=== PATIENT | male | born 1965 | race Caucasian/White ===

== ENCOUNTER → 2017-01-07 | Outpatient (CLI) | payer MEDICAID ==
--- NOTE | 2017-01-07 18:35 | DX ---
1. Cervical Spine, Two Views History: Chronic pain, arthritis Comparison: None available. Findings: Alignment is anatomic but straight.. There is severe degenerative disk space narrowing betw een C3 and C7 with posterior osteophyte formation greatest at C3-C4.. There is no prevertebral soft tissue swelling. No fracture deformity is identified. Overall mineralization is normal. Impression: Multilevel spondylosis. If there is concern for instability, consider lateral cervical fl exion and extension views. 2. Lumbar Spine, 2 views History: Pain, history of back injury, Z 87.828 Comparison: None Findings: There are 5 lumbarized vertebral bodies. There is a 20 % wedge compression deformity of L1. Some sclerosis in the upper portion of L1 suggests that healing is occurring. The posterior interlam inar line appears intact. There is no transpedicular widening. There is a mild superior endplate comp ression of T11 that is of unknown age. There is degenerative spurring involving the anterior disk spa ce at T11-T12. No other lumbar compression abnormalities are identified. Lumbar disk spaces maintain normal height. Overall mineralization is normal. Impression: 1. L1 compression of uncertain age, but with evidence of healing. 2. Mild T11 compression of unknown age. If there are any old outside x-rays, we would be happy to review them to assess for interval change.
== END ==
LOC: FIMAGING 10:56
DX: G89.29 Other chronic pain (principal); S32.010D Wedge compression fracture of first lumbar vertebra, subsequent encounter for fracture with routine healing; M43.02 Spondylolysis, cervical region; Z87.828 Personal history of other (healed) physical injury and trauma

== ENCOUNTER 2017-10-11 02:33 | Emergency (ER) | payer MEDICAID ==
[2017-10-11 02:43] VITALS: RESP 16
--- NOTE | 2017-10-11 02:57 | EDPHY ---
H & P Stated Complaint: n/v Time Seen by Provider: 10/11/17 02:51 HPI/ROS: Chief Complaint: Nausea, vomiting, diarrhea HPI: 52-year-old male presenting with 2 days of nausea vomiting diarrhea. Patient is concerned because he was states that he was injecting meth is concerned he may have injected something into himself. 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 He has not had any fevers or chills. No chest pain or shortness of breath. No abdominal pain. He states he has been vomiting multiple times having watery diarrhea. No blood in his vomit. No dark tarry stools or blood in his diarrhea. ROS: 10 point Review of Systems is negative except as noted in the HPI. PMH: Hep C Social History: Positive smoking, occasional alcohol, occasional meth Family History: non-contributory Physical Exam: Gen: Awake, Alert, No Distress HEENT: Nose: no rhinorrhea Eyes: PERRLA, EOMI Mouth: Moist mucosa Neck: Supple, no JVD Chest: nontender, lungs clear to auscultation Heart: S1, S2 normal, no murmur Abd: Soft, non-tender, no guarding Back: no CVA tenderness, no midline tenderness Ext: no edema, non-tender Skin: no rash Neuro: CN II-XII intact, Sensation grossly intact, Strength 5/5 in bilateral upper and lower extremities - Personal History Current Tetanus/Diphtheria Vaccine: No Current Tetanus Diphtheria and Acellular Pertussis (TDAP): No - Medical/Surgical History Hx Asthma: No Hx Chronic Respiratory Disease: No Hx Diabetes: No Hx Cardiac Disease: No Hx Renal Disease: No Hx Cirrhosis: No Hx Alcoholism: No Hx HIV/AIDS: No Hx Splenectomy or Spleen Trauma: No Other PMH: hep C, snial fx, drug abuse - Social History Smoking Status: Heavy smoker Constitutional: Initial Vital Signs Temperature (C) 36.6 C 10/11/17 02:41 Heart Rate 84 10/11/17 02:41 Respiratory Rate 16 10/11/17 02:41 Blood Pressure 108/71 10/11/17 02:41 O2 Sat (%) 94 10/11/17 02:41 O2 Delivery Mode Room Air Allergies/Adverse Reactions: bacitracin [From Neosporin ([id number])] Allergy (Verified 10/11/17 02:40) neomycin [From Neosporin ([id number])] Allergy (Verified 10/11/17 02:40) polymyxin B [From Neosporin ([id number])] Allergy (Verified 10/11/17 02:40) Home Medications: Medication Instructions Recorded NK [No Known Home Meds] 10/11/17 Medical Decision Making ED Course/Re-evaluation: 52-year-old male presenting with concerns of a possible blood borne infection after injecting methamphetamine. His primary symptoms are nausea vomiting and diarrhea. He is afebrile. Has no murmur. No chest pain or shortness of breath. He has no symptoms suggestive of acute bacteremia or endocarditis. He is improved after Zofran and IV fluids. He is tolerating p. o.. He does have a leukocytosis however this could certainly be attributed to his nausea and vomiting. Symptoms more consistent with gastroenteritis. Will discharge with follow-up with primary care physician, return for worsening. - Data Points Laboratory Results: Laboratory Results 10/11/17 02:40 10/11/17 02:40 10/11/17 10/11/17 02:40 02:40 WBC 15.70 10^3/uL H 10^3/uL (3.80-9.50) RBC 5.13 10^6/uL 10^6/uL (4.40-6.38) Hgb 16.8 g/dL g/dL (13.7-17.5) Hct 48.4 % % (40.0-51.0) MCV 94.3 fL fL (81.5-99.8) MCH 32.7 pg pg (27.9-34.1) MCHC 34.7 g/dL g/dL (32.4-36.7) RDW 12.9 % % (11.5-15.2) Plt Count 270 10^3/uL 10^3/uL (150-400) MPV 10.6 fL fL (8.7-11.7) Neut % (Auto) 76.1 % H % (39.3-74.2) Lymph % (Auto) 14.0 % L % (15.0-45.0) [place] % (Auto) 7.3 % % (4.5-13.0) Eos % (Auto) 1.7 % % (0.6-7.6) Baso % (Auto) 0.6 % % (0.3-1.7) Nucleat RBC Rel Count 0.0 % % (0.0-0.2) Absolute Neuts (auto) 11.97 10^3/uL H 10^3/uL (1.70-6.50) Absolute Lymphs (auto) 2.20 10^3/uL 10^3/uL (1.00-3.00) Absolute Monos (auto) 1.14 10^3/uL H 10^3/uL (0.30-0.80) Absolute Eos (auto) 0.26 10^3/uL 10^3/uL (0.03-0.40) Absolute Basos (auto) 0.09 10^3/uL 10^3/uL (0.02-0.10) Absolute Nucleated RBC 0.00 10^3/uL 10^3/uL (0-0.01) Immature Gran % 0.3 % % (0.0-1.1) Immature Gran # 0.04 10^3/uL 10^3/uL (0.00-0.10) Sodium 143 mEq/L mEq/L (134-144) Potassium 4.2 mEq/L mEq/L (3.5-5.2) Chloride 103 mEq/L mEq/L (97-110) Carbon Dioxide 26 mEq/l mEq/l (22-31) Anion Gap 14 mEq/L mEq/L (8-16) BUN 18 mg/dL mg/dL (7-23) Creatinine 0.8 mg/dL mg/dL (0.7-1.3) Estimated GFR > 60 Glucose 91 mg/dL mg/dL (70-100) Calcium 9.5 mg/dL mg/dL (8.5-10.4) Total Bilirubin 0.2 mg/dL mg/dL (0.1-1.4) AST 64 IU/L H IU/L (17-59) ALT 102 IU/L H IU/L (21-72) Alkaline Phosphatase 79 IU/L IU/L (38-126) Total Protein 7.0 g/dL g/dL (6.3-8.2) Albumin 4.0 g/dL g/dL (3.5-5.0) Medications Given: Discontinued Medications Sodium Chloride (Ns) 1,000 mls @ 3,000 mls/hr IV ONCE ONE Stop: 10/11/17 03:55 Last Admin: 10/11/17 03:40 Dose: 1,000 mls Departure - Departure Disposition: Home, Routine, Self-Care Clinical Impression: Gastroenteritis Condition: Good Instructions: Gastroenteritis (ED), Dehydration (ED) Additional Instructions: Follow up with your primary care physician in 3-4 days. Return to the emergency department for fevers, chills, chest pain, shortness of breath, fainting, uncontrolled nausea or vomiting, or any other concerns. Referrals: Megan Capone MD [Medical Doctor] - As per Instructions
[2017-10-11 03:02] LABS: % IMMATURE GRANULYOCYTES 0.3 % (0.0-1.1); ABSOLUTE IMMATURE GRANULOCYTES 0.04 10^3/uL (0.00-0.10); ADD DIFF? NO; ADD MORPH? NO; ADD SCAN? NO; ATYPICAL LYMPHOCYTE FLAG 10 (0-99); FRAGMENT RBC FLAG 0 (0-99); HEMATOCRIT 48.4 % (40.0-51.0); HEMOGLOBIN 16.8 g/dL (13.7-17.5); LEFT SHIFT FLG 0 (0-99); LIPEMIA HEMOLYSIS FLAG 90 (0-99); MEAN CELL HEMOGLOBIN 32.7 pg (27.9-34.1); MEAN CELL HEMOGLOBIN CONCENTR. 34.7 g/dL (32.4-36.7); MEAN CELL VOLUME 94.3 fL (81.5-99.8); MEAN PLATELET VOLUME 10.6 fL (8.7-11.7); PLATELET CLUMPS FLAG 0 (0-99); PLATELET COUNT 270 10^3/uL (150-400); RED BLOOD CELL COUNT 5.13 10^6/uL (4.40-6.38); RED CELL DISTRIBUTION WIDTH 12.9 % (11.5-15.2)
[2017-10-11 03:09] LABS: ALANINE AMINOTRANSFERASE 102 IU/L (21-72); ALKALINE PHOSPHATASE 79 IU/L (38-126); ANION GAP 14 mEq/L (8-16); ASPARTATE AMINOTRANSFERASE 64 IU/L (17-59); BILIRUBIN,TOTAL 0.2 mg/dL (0.1-1.4); CALCIUM 9.5 mg/dL (8.5-10.4); CARBON DIOXIDE 26 mEq/l (22-31); CHLORIDE 103 mEq/L (97-110); CREATININE 0.8 mg/dL (0.7-1.3); GLOMERULAR FILTRATION RATE > 60; GLUCOSE 91 mg/dL (70-100); POTASSIUM 4.2 mEq/L (3.5-5.2); SODIUM 143 mEq/L (134-144)
[2017-10-11] MEDS ORDERED: NS 1,000 ML IV ONE (03:36)
[2017-10-11 05:16] VITALS: BP 124/74; PULSE 70; TEMP 98.2; O2SAT 95
== END 2017-10-11 05:16 | disposition home or self-care (01) ==
LOC: EDUNIT#
DX: K52.9 Noninfective gastroenteritis and colitis, unspecified (principal); F17.200 Nicotine dependence, unspecified, uncomplicated